=== PATIENT | female | born 1960 | race Caucasian/White ===

== ENCOUNTER 2016-12-23 11:50 | Day surgery (SDC) | payer BC, MEDICAID ==
--- NOTE | 2016-12-23 13:12 | PDHPUP ---
History & Physical Update H&P update statement: This history and physical update is based on an assessment of the patient which was completed after admission or registration (within 24 hours), but prior to the surgery/procedure. H&P update: H&P reviewed & patient examined, no change in patient's condition since H&P completed
--- NOTE | 2016-12-23 13:12 | PDPROPOC ---
Sedation Plan of Care Sedation Plan of Care: vital signs stable ASA Classification: ASA 1 Mallampati Score: Class 1 332 Rule: 332
[2016-12-23] MEDS ORDERED: MIDAZOLAM 2 MG/2 ML VIAL ONE (13:24)
[2016-12-23] MEDS ORDERED: fentaNYL 100 MCG/2 ML INJ ONE (13:25)
[2016-12-23] MEDS: MIDAZOLAM 2 MG/2 ML VIAL ONE ×2 (13:40→15:17)
[2016-12-23] MEDS: fentaNYL 100 MCG/2 ML INJ ONE ×2 (13:40→15:16)
[2016-12-23 14:00] VITALS: PULSE 56
[2016-12-23 14:07] VITALS: TEMP 97.9
--- NOTE | 2016-12-23 14:10 | POSTOPPROG ---
Post Op Note Date of Operation: 12/23/16 Surgeon: Toni Vargas Anesthesia: IV Sedation Pre-op Diagnosis: family h/o CRC Post-op Diagnosis: same Indication: same Procedure: CLN Findings: normal Inf/Abcess present in the surg proc area at time of surgery?: No
[2016-12-23 14:35] VITALS: BP 90/54; RESP 16; O2SAT 99
--- NOTE | 2016-12-24 00:17 | GPN ---
[f rep st] PROCEDURE NOTE PROCEDURE: Colonoscopy. INDICATIONS: The patient is a 56-year-old female with family history of colon cancer, presents for vigilant screening. DESCRIPTION OF PROCEDURE: The proper consent was obtained. The patient was placed in the left late ral decubitus position. Received 6 mg intravenous Versed, 100 mcg intravenous fentanyl. Video colo noscope was introduced through the anus and rectum, up the left colon, across the transverse colon, down the right colon to the cecum. Findings as follows: Normal colonoscopic exam. No polyps, tumors, or lesions noted. At this point, the instrument was removed. The patient tolerated the procedure well and was returne d to recovery room in stable condition. RECOMMENDATIONS: The patient should continue with every 5-year screening for her family history. I will put her name in my reminder file. /[id number]/MODL
== END 2016-12-23 14:40 | disposition home or self-care (01) ==
LOC: FSGY 11:50
PROVIDERS: ATTEND Internal Medicine Gastroenterology
PROC: 0DJD8ZZ Inspection of Lower Intestinal Tract, Via Natural or Artificial Opening Endoscopic (ICD-10-PCS; principal; 2016-12-23 13:00)
DX: Z12.11 Encounter for screening for malignant neoplasm of colon (principal); Z80.0 Family history of malignant neoplasm of digestive organs
CPT/HCPCS: J2250; J3010

== ENCOUNTER 2017-06-05 14:16 | Emergency (ER) | payer MEDICAID ==
[2017-06-05 14:30] VITALS: TEMP 97.2
[2017-06-05] MEDS ORDERED: HYDROmorphONE/DILAUDID 1 MG/ML INJ IVP ONE (16:31)
--- NOTE | 2017-06-05 16:37 | EDPHY ---
H & P Stated Complaint: R arm pain Time Seen by Provider: 06/05/17 16:21 HPI/ROS: CHIEF COMPLAINT: Right shoulder pain HISTORY OF PRESENT ILLNESS: Patient is a 57-year-old female who comes to the emergency department complaining of right shoulder pain and heaviness. She states that it became symptomatic at the end of March after she had been wearing heavy backpack. She has been following up with her chiropractor who referred her to the urgent care with concerns for disc bulging in her neck. The patient presented to urgent care and had plain films done of her neck which revealed some degenerative disc disease and foraminal narrowing at C5-6. She was started on a Medrol Dosepak and given referral to physical therapy. Patient states she has taken 2 days with the Dosepak and has not had any symptom improvement. She states that her arm still feels slightly heavy but that the pain is her primary concern and it is getting worse over the lateral aspect of her shoulder. It feels better to elevate her arm over her head. Her pain worsens with turning of her neck or looking up. No fever. No trauma. No weakness or paresthesias. No clumsiness or dropping objects. REVIEW OF SYSTEMS: Constitutional: denies: chills, fever, recent illness, recent injury EENTM: denies: blurred vision, double vision, nose congestion Respiratory: denies: cough, shortness of breath Cardiac: denies: chest pain, irregular heart rate, lightheadedness, palpitations Gastrointestinal/Abdominal: denies: abdominal pain, diarrhea, nausea, vomiting, blood streaked stools Genitourinary: denies: dysuria, frequency, hematuria, pain Musculoskeletal: See HPI Skin: denies: lesions, rash, jaundice, bruising Neurological: See HPI denies: headache, numbness, paresthesia, tingling, dizziness, weakness Hematologic/Lymphatic: denies: blood clots, easy bleeding, easy bruising Immunologic/allergic: denies: HIV/AIDS, transplant EXAM: GENERAL: Well-appearing, well-nourished and in no acute distress. HEAD: Atraumatic, normocephalic. EYES: Pupils equal round and reactive to light, extraocular movements intact, sclera anicteric, conjunctiva are normal. ENT: TMs normal, nares patent, oropharynx clear without exudates. Moist mucous membranes. NECK: Normal range of motion, supple without lymphadenopathy or JVD. LUNGS: Breath sounds clear to auscultation bilaterally and equal. No wheezes rales or rhonchi. HEART: Regular rate and rhythm without murmurs, rubs or gallops. ABDOMEN: Soft, nontender, normoactive bowel sounds. No guarding, no rebound. No masses appreciated. BACK: No CVA tenderness, no spinal tenderness, step-offs or deformities EXTREMITIES: Pain over lateral shoulder nerve deltoid region. No tenderness. No swelling. No deformity. Mild tenderness to shoulder girdle clavicle as well. No obvious deformity. Pain worsens with turning of her head or looking up. NEUROLOGICAL: Cranial nerves II through XII grossly intact. Normal speech, normal gait. 5/5 strength, normal movement in all extremities, normal sensation no pronator drift. Normal pulses. normal sensation to light touch. PSYCH: Normal mood, normal affect. SKIN: Warm, dry, normal turgor, no visible rashes or lesions. Source: Patient Exam Limitations: No limitations - Personal History Current Tetanus/Diphtheria Vaccine: No Current Tetanus Diphtheria and Acellular Pertussis (TDAP): No - Medical/Surgical History Hx Asthma: No Hx Chronic Respiratory Disease: No Hx Diabetes: No Hx Cardiac Disease: No Hx Renal Disease: No Hx Cirrhosis: No Hx Alcoholism: No Hx HIV/AIDS: No Hx Splenectomy or Spleen Trauma: No Other PMH: denies - Family History Significant Family History: No pertinent family hx - Social History Smoking Status: Never smoked Alcohol Use: Sober Constitutional: Initial Vital Signs Temperature (C) 36.2 C 06/05/17 14:27 Heart Rate 84 06/05/17 14:27 Respiratory Rate 18 06/05/17 14:27 Blood Pressure 84/56 L 06/05/17 14:27 O2 Sat (%) 93 06/05/17 14:27 O2 Delivery Mode Room Air Allergies/Adverse Reactions: Sulfa (Sulfonamide Antibiotics) Allergy (Verified 06/05/17 14:27) Home Medications: Medication Instructions Recorded Herbals/Supplements -Info Only 12/07/16 Hydrocodone/APAP 5/325 [[place] 1 - 2 tab PO Q4H PRN #10 tab 06/05/17 5/325 (RX)] Methylprednisolone 06/05/17 Medical Decision Making - Diagnostics Imaging: Discussed imaging studies w/ acute coordinator Radiologist ED Course/Re-evaluation: I did review the patient's blood pressure from previous visits and it was also low. This appears to be her baseline. 5:50 p.m. we discussed the imaging results which are reassuring. I will have the patient follow up with Neurosurgery. I encouraged her to continue using steroids and wearing the sling for pain control. We discussed anti- inflammatories and I will give her a small prescription for aquatic. Encouraged her to continue physical therapy as well. She understands and agrees with this plan. Differential Diagnosis: Partial list of the Differential diagnosis considered include but were not limited to; radiculopathy, stenosis, shoulder arthritis and although unlikely based on the history and physical exam, I also considered infection, cord compression, fracture, trauma. I discussed these differential diagnoses and the plan with the patient as well as the usual and expected course. The patient understands that the diagnosis is provisional and that in medicine we are not always correct and that further workup is often warranted. Usual and customary warnings were given. All of the patient's questions were answered. The patient was instructed to return to the emergency department should the symptoms at all worsen or return, otherwise to followup with the physician as we discussed. - Data Points Medications Given: Discontinued Medications Hydrocodone Bitart/Acetaminophen ([place] 5/325mg Prepack#6) 1 btl TAKEHOME EDNOW ONE Stop: 06/05/17 18:08 Last Admin: 06/05/17 18:30 Dose: 1 btl Hydromorphone HCl (Dilaudid) 0.5 mg IVP EDNOW ONE Stop: 06/05/17 16:32 Last Admin: 06/05/17 18:07 Dose: Not Given Departure - Departure Disposition: Home, Routine, Self-Care Clinical Impression: Right cervical radiculopathy Condition: Fair Instructions: Hydrocodone/Acetaminophen (By mouth), Cervical Radiculopathy (ED) Referrals: NONE *PRIMARY CARE P,. [Primary Care Provider] - As per Instructions Ted Ennis MD [Medical Doctor] - 5-7 days, call for appt. Prescriptions: Hydrocodone/APAP 5/325 [[place] 5/325 (RX)] 1 - 2 tab PO Q4H PRN #10 tab PRN Reason: Pain, Moderate
[2017-06-05] MEDS ORDERED: ACETAMINOPHEN 500 MG TAB ONE (16:48)
[2017-06-05] MEDS ORDERED: HYDROCOD/APAP 5/325 PREPACK#6 BTL TAKEHOME ONE (18:07)
[2017-06-05 18:38] VITALS: BP 96/61; PULSE 85; RESP 16; O2SAT 95
== END 2017-06-05 18:36 | disposition home or self-care (01) ==
DX: M54.12 Radiculopathy, cervical region (principal)
CPT/HCPCS: J1170

== ENCOUNTER → 2017-10-04 | Outpatient (CLI) | payer MEDICAID | LOC: BMCIMAGING 14:02 | DX: Z13.820 Encounter for screening for osteoporosis (principal); M85.89 Other specified disorders of bone density and structure, multiple sites; Z78.0 Asymptomatic menopausal state ==